=== PATIENT | female | born 1995 | race Two or more races ===

== ENCOUNTER 2023-04-19 10:14 | Emergency (ER) | payer MEDICAID ==
[~2023-04-19] VITALS: Ht 162.6 cm; Wt 81.8 kg
[2023-04-19 10:20] VITALS: BP 126/73; PULSE 115; RESP 16; O2SAT 96
== END 2023-04-19 13:20 | disposition left against medical advice (07) ==
LOC: ER 10:14
DX: J02.9 Acute pharyngitis, unspecified (principal); R50.9 Fever, unspecified; Z53.21 Procedure and treatment not carried out due to patient leaving prior to being seen by health care provider